=== PATIENT | female | born 1955 | race Caucasian/White ===

== ENCOUNTER 2016-11-02 21:02 | Emergency (ER) | payer OTHER ==
[~2016-11-02] VITALS: Ht 162.6 cm; Wt 69.5 kg
[2016-11-02 21:07] VITALS: BP 153/86
--- NOTE | 2016-11-02 22:09 | NUR ---
PT TAKEN TO BED 5
--- NOTE | 2016-11-02 22:14 | NUR ---
60 Y/O F W/C/O CHEST TIGHNESS AND PAIN TO L ARM X 3 DAYS AGO. DENIES ANY NAUSEA OR VOMITTING, OR SOB. PT STATES WAS SEEN AT [facility] FOR THE SAME REASON X 1 MTH AND DIAGNOSED WITH SLIGHTLY ENLARGED HEART. NO S/S OF DISTRESS NOTED AT THE MOMENT. PT ONN MONITOR, ER MD MADE AWARE.
[2016-11-02] MEDS ORDERED: DIAZEPAM 5 MG TAB PO ONE (22:30)
--- NOTE | 2016-11-02 23:28 | NUR ---
PT SLEEPING, NO S/S OF DISTRESS NOTED AT THE MOMENT, WILL COT TO MONITOR.
[2016-11-02] MEDS ORDERED: POTASSIUM CHLORIDE 10 MEQ TABER PO ONE (23:50)
[2016-11-03 00:39] VITALS: BP 121/88
--- NOTE | 2016-11-03 00:39 | NUR ---
Patient discharged with v/s stable. Written and verbal after care instructions given and explained. Patient alert, oriented and verbalized understanding of instructions. Ambulatory with steady gait. All questions addressed prior to discharge. ID band removed. Patient advised to follow up with PMD TOMORROW OR RETURN TO ER IF CONDITION WORSENS. Rx of VALIUM AND NAPROSYN given. Patient educated on indication of medication including possible reaction and side effects. Opportunity to ask questions provided and answered.
== END 2016-11-03 00:39 | disposition home or self-care (01) ==
LOC: MED 21:02
DX: R07.89 Other chest pain (principal); M54.9 Dorsalgia, unspecified; M54.2 Cervicalgia; I10 Essential (primary) hypertension; Z88.6 Allergy status to analgesic agent
CPT/HCPCS: 36415; 71010; 80053; 82550; 82553; 83690; 84484; 85025; 93005; 99285; Q0092

== ENCOUNTER 2018-10-05 09:41 | Emergency (ER) | payer OTHER ==
[~2018-10-05] VITALS: Ht 170.2 cm; Wt 66.2 kg
[2018-10-05 09:45] VITALS: BP 128/89
--- NOTE | 2018-10-05 09:54 | NUR ---
PT AMBULATES TO BED 8
--- NOTE | 2018-10-05 09:55 | NUR ---
C/O INTERMITENT FEVER, CHRONIC COUGH X 3MONTHS. MED HX: ASTHMA MED:NONE. DENIES N/V/D; SKIN IS PINK/WARM/DRY; AAOX4 WITH EVEN AND STEADY GAIT; LUNGS CLEAR BL; HR EVEN AND REGULAR; PT DENIES ANY FEVER, CP, SOB AT THIS TIME; PATIENT STATES PAIN OF 0/10 AT THIS TIME; VSS; PATIENT POSITIONED FOR COMFORT; HOB ELEVATED; BEDRAILS UP X2; BED DOWN. ER MD MADE AWARE OF PT STATUS.
--- NOTE | 2018-10-05 10:06 | NUR ---
Patient being evaluated by physician at bedside.
--- NOTE | 2018-10-05 10:19 | NUR ---
PT TAKEN TO XRAY VIA WHEELCHAIR
[2018-10-05] MEDS ORDERED: predniSONE 20 MG TAB PO ONE (10:50)
[2018-10-05 11:14] VITALS: BP 128/89
--- NOTE | 2018-10-05 11:15 | NUR ---
Patient discharged with v/s stable. Written and verbal after care instructions given and explained. Patient alert, oriented and verbalized understanding of instructions. Ambulatory with steady gait. All questions addressed prior to discharge. ID band removed. Patient advised to follow up with PMD. Rx of prednisone, tessalon perles and codeine phosphate given. Patient educated on indication of medication including possible reaction and side effects. Opportunity to ask questions provided and answered.
== END 2018-10-05 11:15 | disposition home or self-care (01) ==
LOC: MED 09:41
DX: J45.901 Unspecified asthma with (acute) exacerbation (principal); J06.9 Acute upper respiratory infection, unspecified; I10 Essential (primary) hypertension
CPT/HCPCS: 71046; 99283; J7512

== ENCOUNTER 2018-10-13 09:14 | Emergency (ER) | payer OTHER ==
[~2018-10-13] VITALS: Ht 165.1 cm; Wt 68.0 kg
[2018-10-13 09:16] VITALS: BP 113/62
--- NOTE | 2018-10-13 09:33 | NUR ---
Patient ambulated to bed 9 with family. RN evaluating patient at bedside.
--- NOTE | 2018-10-13 09:39 | NUR ---
PT BIB SELF TO THE ED WITH THE CHIEF C/O THROAT PAIN SINCE LAST WEEK. NOT TAKING ANY PAIN MEDS CURRENTLY. REPORTS COUGH WITH PHLEGM. DENIES BLOOD IN COUGH. DENIES ANY RECENT FEVER. PT HAS HX OF THROAT CYST 2 YEARS AGO. WAS SEEN BY DOCTOR HERE IN ER FOR COUGH AND ASTHMA 2 WEEKS AGO. LUNGS CLEAR. STATES PAIN OF 9/10 AT THIS TIME. ER MD AWARE.
--- NOTE | 2018-10-13 09:40 | NUR ---
Dr. Ladneros evaluating patient at bedside.
[2018-10-13 10:08] VITALS: BP 117/69
--- NOTE | 2018-10-13 10:08 | NUR ---
Patient discharged with v/s stable. Written and verbal after care instructions given and explained. Patient alert, oriented and verbalized understanding of instructions. Ambulatory with steady gait. All questions addressed prior to discharge. ID band removed. Patient advised to follow up with PMD. Rx of NAPROSYN, NORCO AND ALBUTEROL given. Patient educated on indication of medication including possible reaction and side effects. Opportunity to ask questions provided and answered.
== END 2018-10-13 10:08 | disposition home or self-care (01) ==
LOC: MED 09:14
DX: J45.909 Unspecified asthma, uncomplicated (principal); R07.0 Pain in throat; R05 Cough; I10 Essential (primary) hypertension
CPT/HCPCS: 99283

== ENCOUNTER 2020-08-18 10:57 | Emergency (ER) | payer OTHER ==
[~2020-08-18] VITALS: Ht 165.1 cm; Wt 64.0 kg
--- NOTE | 2020-08-18 11:02 | NUR ---
PT AMBULATED TO BED 2.
[2020-08-18 11:12] VITALS: BP 171/81
--- NOTE | 2020-08-18 11:27 | NUR ---
64 YEAR OLF FEMALE COMPLAINES OF ANXIETY X 1 DAY. VERBALIZED INCREASED STRESS FOLLOWING OF [place]. DENIES DESIRE TO HARM SELF OR OTHERS. DENIES PAIN. AO4, BREATHING EVEN AND UNLABORED, SKIN WARM AND DRY. BED IN LOWEST POSITION, LOCKED, X1 SIDERAIL UP. PMH - HYPERTENSION NKA
[2020-08-18 11:46] LABS: BASOPHILS # (AUTO) 0.1 K/uL (0.00-0.22); BASOPHILS % (AUTO) 1.3 % (0.0-2.0); EOSINOPHILS # (AUTO) 0.2 K/uL (0-0.4); EOSINOPHILS % (AUTO) 2.1 % (0.0-4.0); HEMATOCRIT 40.4 % (36-48); HEMOGLOBIN 13.4 g/dL (12.0-16.0); LYMPHOCYTES # (AUTO) 1.7 K/uL (2.5-16.5); LYMPHOCYTES % (AUTO) 24.1 % (20.5-51.1); MEAN CORPUSCULAR HEMOGLOBIN 28 pg (27-31); MEAN CORPUSCULAR HGB CONC 33 g/dL (33-37); MEAN CORPUSCULAR VOLUME 84.9 fL (80-94); MONOCYTES # (AUTO) 0.6 K/uL (0.8-1.0); MONOCYTES % (AUTO) 7.8 % (1.7-9.3); NEUTROPHILS # (AUTO) 4.7 K/uL (1.8-7.7); NEUTROPHILS % (AUTO) 64.7 % (42.2-75.2); PLATELET COUNT (AUTO) 230 K/uL (140-450); RED BLOOD CELL COUNT(AUTO) 4.76 MIL/uL (4.20-5.40); RED CELL DISTRIBUTION WIDTH 14.1 % (11.6-13.7); WHITE BLOOD COUNT (AUTO) 7.3 K/uL (4.8-10.8)
[2020-08-18 11:52] LABS: ANION GAP 11.8 (8-16); CARBON DIOXIDE 31.8 mmol/L (21-32); CREATININE 0.6 mg/dL (0.6-1.3); POTASSIUM 3.6 mmol/L (3.5-5.1)
[2020-08-18 12:34] VITALS: BP 117/68
--- NOTE | 2020-08-18 12:34 | NUR ---
Patient discharged with v/s stable. Written and verbal after care instructions given and explained in german, translated by myself. Patient alert, oriented and verbalized understanding of instructions. Ambulatory with steady gait. All questions addressed prior to discharge. ID band removed. Patient advised to follow up with PMD. Rx of Atarax 25mg and Zofran 8mg given. Patient educated on indication of medication including possible reaction and side effects. Opportunity to ask questions provided and answered.
== END 2020-08-18 12:34 | disposition home or self-care (01) ==
LOC: MED 10:57
DX: I10 Essential (primary) hypertension (principal); R11.0 Nausea; J45.909 Unspecified asthma, uncomplicated; Z98.890 Other specified postprocedural states
CPT/HCPCS: 36415; 80048; 85025; 99283

== ENCOUNTER 2020-11-07 10:50 | Emergency (ER) | payer MEDICAID, OTHER ==
[~2020-11-07] VITALS: Ht 160 cm; Wt 63.5 kg
[2020-11-07 10:55] VITALS: BP 154/86
[2020-11-07 11:32] LABS: BASOPHILS % (AUTO) 0.7 % (0.0-2.0); EOSINOPHILS # (AUTO) 0.2 K/uL (0-0.4); EOSINOPHILS % (AUTO) 2.5 % (0.0-4.0); HEMATOCRIT 39.9 % (36-48); HEMOGLOBIN 12.9 g/dL (12.0-16.0); LYMPHOCYTES # (AUTO) 1.7 K/uL (2.5-16.5); LYMPHOCYTES % (AUTO) 24.3 % (20.5-51.1); MEAN CORPUSCULAR HEMOGLOBIN 28 pg (27-31); MEAN CORPUSCULAR HGB CONC 32 g/dL (33-37); MEAN CORPUSCULAR VOLUME 86.3 fL (80-94); MONOCYTES # (AUTO) 0.5 K/uL (0.8-1.0); MONOCYTES % (AUTO) 6.9 % (1.7-9.3); NEUTROPHILS # (AUTO) 4.7 K/uL (1.8-7.7); NEUTROPHILS % (AUTO) 65.6 % (42.2-75.2); PLATELET COUNT (AUTO) 283 K/uL (140-450); RED BLOOD CELL COUNT(AUTO) 4.62 MIL/uL (4.20-5.40); RED CELL DISTRIBUTION WIDTH 14.2 % (11.6-13.7); WHITE BLOOD COUNT (AUTO) 7.1 K/uL (4.8-10.8)
[2020-11-07 11:46] LABS: ALBUMIN 3.6 g/dL (3.4-5.0); ANION GAP 10.1 (8-16); CARBON DIOXIDE 29.7 mmol/L (21-32); CREATININE 0.6 mg/dL (0.6-1.3); POTASSIUM 3.8 mmol/L (3.5-5.1); TOTAL BILIRUBIN 0.2 mg/dL (0.0-1.0)
[2020-11-07] MEDS ORDERED: ALBU0.0912 INH (14:13)
[2020-11-07 14:24] VITALS: BP 144/63
== END 2020-11-07 14:24 | disposition home or self-care (01) ==
LOC: MED 10:50
DX: R00.2 Palpitations (principal); R06.02 Shortness of breath; R51.9 Headache, unspecified; J45.909 Unspecified asthma, uncomplicated; I11.0 Hypertensive heart disease with heart failure; I50.9 Heart failure, unspecified; Z98.890 Other specified postprocedural states; Z79.899 Other long term (current) drug therapy
CPT/HCPCS: 36415; 71045; 80053; 83690; 84484; 85025; 85379; 93005; 99285

== ENCOUNTER 2020-12-27 10:41 | Emergency (ER) | payer MEDICAID ==
[~2020-12-27] VITALS: Ht 165.1 cm; Wt 73.1 kg
[~2020-12-27 10:41] MED LIST: ALBU0.0912 INH
[2020-12-27 10:45] VITALS: BP 151/75
--- NOTE | 2020-12-27 11:00 | NUR ---
PATIENT AMBULATED TO BED 11.
--- NOTE | 2020-12-27 11:08 | NUR ---
Patient being evaluated by Dr. Landeros at bedside.
--- NOTE | 2020-12-27 11:17 | NUR ---
C/O BURNING FACIAL PAIN THAT STARTED ABOUT ONE WEEK AGO, ONLY ON RIGHT SIDE. NO NEURO DEFICITS NOTED AT THIS TIME THROUGHOUT ENTIRE BODY. NO FACIAL DROOPING NOTED AT THIS TIME. PATIENT DENIES ANY WEAKNESS/FEVER. PMH: CHF, ASTHMA, GASTRITIS
--- NOTE | 2020-12-27 11:22 | NUR ---
PT TAKEN TO XRAY AT THIS TIME
[2020-12-27] MEDS ORDERED: ALBU0.0912 INH (11:58)
[2020-12-27 12:00] VITALS: BP 151/75
--- NOTE | 2020-12-27 12:00 | NUR ---
Patient discharged with v/s stable. Written and verbal after care instructions given and explained. Patient alert, oriented and verbalized understanding of instructions. Ambulatory with steady gait. All questions addressed prior to discharge. ID band removed. Patient advised to follow up with PMD. Rx of Proventil sent to [facility]. Patient educated on indication of medication including possible reaction and side effects. Opportunity to ask questions provided and answered.
== END 2020-12-27 12:00 | disposition home or self-care (01) ==
LOC: MED 10:41
DX: S00.93XA Contusion of unspecified part of head, initial encounter (principal); M26.69 Other specified disorders of temporomandibular joint; J45.909 Unspecified asthma, uncomplicated; I11.9 Hypertensive heart disease without heart failure; W20.8XXA Other cause of strike by thrown, projected or falling object, initial encounter; Y93.89 Activity, other specified; Y92.89 Other specified places as the place of occurrence of the external cause; Y99.8 Other external cause status
CPT/HCPCS: 70110; 99283

== ENCOUNTER 2021-03-26 11:12 | Emergency (ER) | payer MEDICAID ==
[~2021-03-26] VITALS: Ht 170.2 cm; Wt 67.6 kg
[2021-03-26 11:23] VITALS: BP 137/80
--- NOTE | 2021-03-26 11:30 | NUR ---
65 Y/O FEMALE C/O LEFT FOOT PAIN 5/10 DESCRIBES CRAMPING RADIATES TO LEFT HIP X4DAYS. PT DENIES TRAUMA/INJURY. PT STATES SHE TOOK ADVIL WITH SOME RELIEF. DENIES N/V, DENIES FEVER/CHILLS. PMH: ASTHMA, HTN, SUNUSITIS, GASTRITIS ALLERGIES: GENERAL ANESTHESIA
--- NOTE | 2021-03-26 12:07 | NUR ---
Rosa murdock in ED - 03/26/21 at 1209 by [email or web address] BRADLY Keyes evaluating pt at [facility], [place]
[2021-03-26] MEDS ORDERED: NAPR-1704 PO (13:51)
--- NOTE | 2021-03-26 14:00 | NUR ---
NO NURSING INTERVENTIONS NEEDED, SEEN &TREATED BY BRADLY SILVA. Addendum: 03/26/21 [facility] 1413 [facility] REFUSED BLOOD DRAWN.
[2021-03-26 14:09] VITALS: BP 137/80
== END 2021-03-26 14:09 | disposition home or self-care (01) ==
LOC: MED 11:12
DX: M10.072 Idiopathic gout, left ankle and foot (principal); J45.909 Unspecified asthma, uncomplicated; I11.0 Hypertensive heart disease with heart failure; I50.9 Heart failure, unspecified; Z79.1 Long term (current) use of non-steroidal anti-inflammatories (NSAID); Z79.51 Long term (current) use of inhaled steroids; Z88.4 Allergy status to anesthetic agent
CPT/HCPCS: 73660; 99283

== ENCOUNTER 2021-12-12 09:44 | Emergency (ER) | payer MEDICAID ==
[~2021-12-12] VITALS: Ht 161.3 cm; Wt 74.5 kg
[~2021-12-12 09:44] MED LIST changes: +NAPR-1704 PO
[2021-12-12 10:13] VITALS: BP 125/78
--- NOTE | 2021-12-12 10:20 | NUR ---
C/O 02/19 CLIVE WRIST, ANKLES JOINTS , UPPER ARMS PAIN X 2 YEARS. DENIES TRAUM/INJURY. PMH:ARTHRITIS, HTN, CHF,ASTHMA
--- NOTE | 2021-12-12 10:58 | NUR ---
Rosa murdock in [facility] - 12/12/21 at 1059 by [email or web address] Patient being evaluated by DR HERNANDEZ at [facility]
[2021-12-12] MEDS ORDERED: IBUP-2213 PO (11:48)
[2021-12-12 12:21] VITALS: BP 130/80
== END 2021-12-12 12:21 | disposition home or self-care (01) ==
LOC: MED 09:44
DX: M79.10 Myalgia, unspecified site (principal); R60.9 Edema, unspecified; J45.909 Unspecified asthma, uncomplicated; I11.0 Hypertensive heart disease with heart failure; I50.9 Heart failure, unspecified; Z79.899 Other long term (current) drug therapy; Z98.890 Other specified postprocedural states
CPT/HCPCS: 99282

== ENCOUNTER 2022-01-08 09:03 | Emergency (ER) | payer MEDICAID ==
[~2022-01-08] VITALS: Ht 170.2 cm; Wt 74.4 kg
[~2022-01-08 09:03] MED LIST changes: +IBUP-2213 PO
[2022-01-08 09:06] VITALS: BP 152/108
--- NOTE | 2022-01-08 09:12 | NUR ---
PT AMBULATED TO ER BED 4 WITH A STEADY GAIT.
--- NOTE | 2022-01-08 09:24 | NUR ---
66 Y/O FEMALE C/O BILATERAL LEG PAIN 5/10 DESCRIBES ACHING AND BURNING X 10 MONTHS. PT STATES SHE TOOK IBUROFEN WITH SOME RELIEF. PT DENIES TRAUMA/INJURY. DENIES FEVER/CHILLS. DENIES N/V/D. PMH: ASTHMA, HTN MEDS: ALBUTEROL
--- NOTE | 2022-01-08 09:33 | NUR ---
DR. KENNY AT PT BEDSIDE FOR FURTHER EVALUATION.
[2022-01-08] MEDS ORDERED: GABAPENTIN 300 MG CAP PO ONE (10:00)
[2022-01-08] MEDS ORDERED: GABA300C PO (10:01)
[2022-01-08 10:36] VITALS: BP 142/55
--- NOTE | 2022-01-08 10:37 | NUR ---
Patient discharged with v/s stable. Written and verbal after care instructions given FOR NEUROPATHIC PAIN and explained. Patient alert, oriented and verbalized understanding of instructions. Ambulatory with steady gait. All questions addressed prior to discharge. ID band removed. Patient advised to follow up with PMD. Rx of GABAPENTIN given. Patient educated on indication of medication including possible reaction and side effects. Opportunity to ask questions provided and answered.
== END 2022-01-08 10:36 | disposition home or self-care (01) ==
LOC: MED 09:03
DX: G62.9 Polyneuropathy, unspecified (principal); I10 Essential (primary) hypertension; J45.909 Unspecified asthma, uncomplicated
CPT/HCPCS: 99283

== ENCOUNTER 2022-05-12 10:12 | Emergency (ER) | payer MEDICAID ==
[~2022-05-12] VITALS: Ht 165.1 cm; Wt 74.8 kg
[~2022-05-12 10:12] MED LIST changes: +GABA300C PO
[2022-05-12 10:23] VITALS: BP 159/98
[2022-05-12 10:31] VITALS: BP 176/88
--- NOTE | 2022-05-12 11:55 | NUR ---
Patient ambulated to bed 8.
--- NOTE | 2022-05-12 12:08 | NUR ---
MD AT BEDSIDE FOR EVALUATION
[2022-05-12] MEDS ORDERED: IBUP-2213 PO (12:34)
[2022-05-12] MEDS ORDERED: ACET-50 PO (12:34)
--- NOTE | 2022-05-12 12:39 | NUR ---
Patient discharged with v/s stable. Written and verbal after care instructions ABOUT SINUSITIS given and explained. Patient alert, oriented and verbalized understanding of instructions. Ambulatory with steady gait. All questions addressed prior to discharge. ID band removed. Patient advised to follow up with PMD. Rx of CORICIDIN HBP COLD & FLU, MOTRIN given. Patient educated on indication of medication including possible reaction and side effects. Opportunity to ask questions provided and answered.
== END 2022-05-12 12:31 | disposition home or self-care (01) ==
LOC: MED 10:12
DX: J32.9 Chronic sinusitis, unspecified (principal); J45.909 Unspecified asthma, uncomplicated; I50.9 Heart failure, unspecified; I10 Essential (primary) hypertension; Z79.899 Other long term (current) drug therapy; Z98.890 Other specified postprocedural states
CPT/HCPCS: 99282